=== PATIENT | female | born 1995 ===

== ENCOUNTER 2018-10-25 12:26 | Emergency (ER) | payer BC ==
[2018-10-25 12:48] VITALS: RESP 16
--- NOTE | 2018-10-25 13:51 | C.PDOC ---
History Of Present Illness 22 year old female with no chronic medical conditions resents to the ED for evaluation of nonbilious vomiting associated with abdominal discomfort and excessive gas for 5 days. The patient reports her current symptoms started after eating a hamburger, notes the last time she consumed meat was approximately 1 year ago. Patient reports she last vomited today in the morning and has been able to tolerate chicken, apple juice, and yucca. She states her period is a few days late. Denies surgical hx. Family Hx: mother diagnosed with ovarian cancer, diabetes runs in the family. Admits to occasionally smoking marijuana, occasionally drinks ETOH, and denies tobacco use. Does not regularly see a PMD. Denies vaginal symptoms, urinary symptoms, fever, chills, recent travel, sick contact, and any other associated symptoms. Time Seen by Provider: 10/25/18 13:00 Chief Complaint (Nursing): GI Problem History Per: Patient History/Exam Limitations: no limitations Onset/Duration Of Symptoms: Days Current Symptoms Are (Timing): Still Present Context: Food Recent travel outside of the [place]: No Past Medical History Reviewed: Historical Data, Nursing Documentation, Vital Signs Vital Signs: Last Vital Signs Temp 99.0 F 10/25/18 12:37 Pulse 96 H 10/25/18 12:37 Resp 16 10/25/18 12:37 BP 146/84 10/25/18 12:37 Pulse Ox 98 10/25/18 12:37 Family History: States: Unknown Family Hx - Social History Hx Alcohol Use: Yes Hx Substance Use: Yes - Immunization History Hx Tetanus Toxoid Vaccination: No Hx Influenza Vaccination: No Hx Pneumococcal Vaccination: No Review Of Systems Except As Marked, All Systems Reviewed And Found Negative. (as per HPI.) Constitutional: Negative for: Fever, Chills, Other (sick contact.) Gastrointestinal: Positive for: Nausea, Vomiting, Abdominal Pain (discomfort. ), Other (excessive gas.) Genitourinary: Negative for: Dysuria, Frequency, Incontinence, Vaginal Discharge, Vaginal Bleeding Physical Exam - Physical Exam Appears: Non-toxic, No Acute Distress Skin: Normal Color, Warm, Dry Head: Atraumatic, Normacephalic Eye(s): bilateral: Normal Inspection Oral Mucosa: Moist Tongue: Normal Appearing Throat: No Erythema, No Exudate Neck: Normal ROM, Trachea Midline Lymphatic: No Adenopathy Chest: Symmetrical Respiratory: Normal Breath Sounds, No Accessory Muscle Use Gastrointestinal/Abdominal: Bowel Sounds (active), Soft, Tenderness (mild tenderness to palpation of the suprapubic area. ), No Mass, No Distention, No Guarding, No Rebound, No Other (mcburney's point tenderness.) Back: Normal Inspection, No Decreased ROM Extremity: Normal ROM, No Deformity Neurological/Psych: Oriented x3, Normal Speech, Normal Cognition ED Course And Treatment O2 Sat by Pulse Oximetry: 98 (RA) Pulse Ox Interpretation: Normal Medical Decision Making Medical Decision Making: Impression: Vomiting and Abdominal pain with benign exam, resolving symptoms Plan: --Urinalysis UA with no clinically significant abnormalities (squam, no UTI) Stable for dc with PMD followup. Dw pt findings and plan of care. Disposition - Disposition Referrals: [facility] [Outside] (FOLLOW UP AT CLINIC IN 2-3 DAYS FOR R EEVALUATION) Disposition: HOME/ ROUTINE Disposition Time: 16:20 Condition: GOOD Prescriptions: Dicyclomine [Bentyl] 20 mg PO QID PRN #20 tab PRN Reason: abdominal pain Ondansetron ODT [Zofran ODT] 1 odt PO Q6 PRN #20 odt PRN Reason: Nausea/Vomiting Instructions: Acute Abdomen (Belly Pain), Adult (DC) - Clinical Impression Clinical Impression: Abdominal pain - Scribe Statement The provider has reviewed the documentation as recorded by the Scribe (Gabriella Espinoza) Provider Attestation: All medical record entries made by the Scribe were at my direction and personally dictated by me. I have reviewed the chart and agree that the record accurately reflects my personal performance of the history, physical exam, medical decision making, and the department course for this patient. I have also personally directed, reviewed, and agree with the discharge instructions and disposition.
[2018-10-25 14:20] LABS: URINE CLARITY Clear (Clear); URINE COLOR YELLOW (YELLOW)
[2018-10-25 14:21] LABS: URINE BILIRUBIN NEGATIVE (NEGATIVE); URINE BLOOD NEGATIVE (NEGATIVE); URINE GLUCOSE (UA) Normal (Normal)
[2018-10-25 14:22] LABS: SQUAMOUS EPITHIAL 1 /hpf (0-5); URINE BACTERIA OCC (<OCC); URINE LEUKOCYTE ESTERASE NEGATIVE Leu/uL (Negative); URINE PROTEIN NEGATIVE (NEGATIVE); URINE UROBILINOGEN Normal mg/dL (0.2-1.0)
[2018-10-25 15:08] VITALS: BP 108/70; PULSE 88; TEMP 98.6
[2018-10-25 21:08] VITALS: O2SAT 98
== END 2018-10-25 15:07 | disposition home or self-care (01) ==
LOC: C.ER 12:26
DX: R10.9 Unspecified abdominal pain (principal)